=== PATIENT | female | born 1985 | race Caucasian/White ===

== ENCOUNTER 2023-10-10 21:58 | Emergency (ER) | payer OTHER ==
[~2023-10-10] VITALS: Ht 162.6 cm; Wt 56.9 kg
[~2023-10-10 21:58] MED LIST: ADDE20CA3 PO; ALBU8.5H; EMTR1TAB16 PO; LEXA5TAB13; RALT40TA PO
[2023-10-10] MEDS ORDERED: LEXA1TAB PO (22:56)
[2023-10-11] MEDS: dexAMETHasone 20MG/5ML VIAL IV ONE (00:10)
[2023-10-11] MEDS: IPRATROPIUM 0.5MG/ALBUTEROL 2.5MG INH SOL UD 3ML (DUONEB) NEB PRN (00:20)
[2023-10-11] MEDS ORDERED: VENTAER INH (01:26)
[2023-10-11] MEDS ORDERED: PRED20TA PO (01:26)
[2023-10-11 01:28] VITALS: BP 142/85; TEMP 98.4; O2SAT 95
== END 2023-10-11 01:40 | disposition home or self-care (01) ==
LOC: M ED 21:58
DX: J45.901 Unspecified asthma with (acute) exacerbation (principal); Z79.51 Long term (current) use of inhaled steroids; Z79.899 Other long term (current) drug therapy; Z79.52 Long term (current) use of systemic steroids
CPT/HCPCS: 94640; 96374; 99284; 99291; J1100